=== PATIENT | male | born 1965 | race Caucasian/White ===

== ENCOUNTER 2025-01-31 09:46 | Outpatient (OUT) | payer OTHER, SELFPAY ==
--- NOTE | 2025-01-31 09:48 | US_ITS ---
The [address] [address] Patient Name: OLIVERIO THIBODEAUX MRN: [id number] date: 1965 Sex: M Assigned Patient Location: US Current Patient Location: US Accession/Order Number: [id number] Exam Date: 01/31/2025 10:36 Report Date: 01/31/2025 10:42 At the request of: GISELA GOMEZ Procedure: US right upper quadrant LIMITED RIGHT UPPER QUADRANT ABDOMINAL ULTRASOUND CLINICAL HISTORY: Elevated liver enzymes COMPARISON: CT 07/01/2020 The gallbladder is physiologically distended without shadowing calculi, wall thickening or pericholecystic fluid. No intrahepatic biliary dilatation is evident. The common duct is slightly prominent measuring 6 - 7 mm. There are no filling defects within the segment which is imaged. The duct was also slightly prominent time of the comparison CT. There is increased echogenicity of hepatic parenchyma in comparison to the right kidney suggesting fatty infiltration. No focal intrahepatic masses are seen. There is appropriate hepatopetal flow within the main portal vein. The visualized portions of the pancreas show no significant sonographic abnormality. Cursory evaluation of the right kidney reveals no hydronephrosis or fluid within Benton's pouch. US/US right upper quadrant IMPRESSION: FATTY LIVER. NO CHOLELITHIASIS. CONTINUED SLIGHTLY PROMINENT COMMON DUCT. Impression dictated by: Gisela Jenkins M.D.01/31/2025 10:42 AM Dictation Location: [place] [address] Electronically authenticated by: [id number] Y Date: 01/31/2025 10:42
== END 2025-01-31 09:47 | disposition home or self-care (01) ==
LOC: US 09:46
PROVIDERS: PCP Internal Medicine; Visit Provider Physician Assistant
DX: R79.89 Other specified abnormal findings of blood chemistry (principal)
CPT/HCPCS: 76705